=== PATIENT | female | born 1995 | race Caucasian/White ===

== ENCOUNTER → 2016-11-20 | Outpatient (CLI) | payer SELFPAY ==
[~2016-11-20] MED LIST: BUPR150T15 PO; BUPR300T3 PO; CITA20TA5 PO; HYDR25TA PO; LISI-338 PO; METR500T PO; Pantoprazole Sodium PO; VENL37.5 PO
--- NOTE | 2016-11-20 16:06 | RAD ---
Complete abdominal ultrasound History: Right upper quadrant pain for 1.5 weeks. Elevated lipase. Pancreatitis. Comparison: None. Procedure: Transabdominal ultrasound images are obtained. Findings: Pancreas is not well visualized or evaluated. Liver is normal in echogenicity. No focal hepatic masses are identified. Right hepatic lobe measures 12.1 cm in length. Gallbladder has an unremarkable appearance. Common bile duct measures normally at 3 mm in diameter. Spleen is unremarkable. Splenic length is 8.6 cm. Right kidney is normal in size and configuration without hydronephrosis. Left kidney is normal in size and configuration without hydronephrosis. Visualized portions of the aorta and IVC have normal caliber. Impression: 1. Pancreas is not well visualized or evaluated. 2. Unremarkable abdominal ultrasound.
== END | disposition home or self-care (01) ==
LOC: US 12:53
PROVIDERS: ATTEND Family Medicine
DX: K85.90 Acute pancreatitis without necrosis or infection, unspecified (principal)
CPT/HCPCS: 76700

== ENCOUNTER → 2017-01-07 | Outpatient (CLI) | payer SELFPAY ==
[2016-11-22 12:17] VITALS: BP 134/72
[~2017-01-07] VITALS: Ht 160 cm; Wt 74.8 kg
[~2017-01-07] MED LIST changes: +SINCALIDE 1.5 MCG in IV NORMAL SALINE 50ML 30 ML IV ONE
--- NOTE | 2017-01-07 15:38 | RAD ---
Radionuclide hepatobiliary scan with gallbladder ejection fraction, 01/07/2017: History: Right upper quadrant pain Following IV injection of 5.5 mCi of technetium 99m Choletec there was prompt uptake of the radionuclide from the blood stream by the liver. Activity is present in the gallbladder and bile ducts at 10 minutes and in the small bowel at 50 minutes. Additional imaging of the gallbladder was performed following IV injection of 1.5 mcg of cholecystokinin. The gallbladder ejection fraction was calculated at 20%. 30-50% is considered to be the borderline low range. IMPRESSION: 1. No evidence of cystic duct or common bile duct obstruction. 2. Low gallbladder ejection fraction of 20%.
== END | disposition home or self-care (01) ==
LOC: NM 12:58
PROVIDERS: ATTEND Family Medicine
DX: R10.11 Right upper quadrant pain (principal)
CPT/HCPCS: 78226; 96374; 96375; A9537; J2805

== ENCOUNTER → 2017-04-06 | Outpatient (CLI) | payer OTHER ==
[2016-11-22 12:17] VITALS: BP 134/72
[~2017-04-06] MED LIST changes: -SINCALIDE 1.5 MCG in IV NORMAL SALINE 50ML 30 ML IV ONE
--- NOTE | 2017-04-06 09:33 | RAD ---
Indication nontoxic multinodular goiter. Grayscale images were obtained. The examination was targeted to the thyroid. No prior imaging of the thyroid is available. The right lobe of the thyroid measures 4.5 x 1.4 x 1.6 cm and appears normal. No mass is seen. The isthmus appears normal. There is a 3 mm mass in the left lobe of the thyroid. IMPRESSION: 3 mm mass in the left lobe of the thyroid otherwise unremarkable study.
== END | disposition home or self-care (01) ==
LOC: US 07:50
PROVIDERS: ATTEND Family Medicine
DX: E04.2 Nontoxic multinodular goiter (principal); E07.89 Other specified disorders of thyroid
CPT/HCPCS: 76536

== ENCOUNTER 2020-12-11 20:20 | Emergency (ER) | payer SELFPAY ==
[~2020-12-11] VITALS: Ht 160 cm; Wt 90.4 kg
[~2020-12-11 20:20] MED LIST changes: -CITA20TA5 PO; +CITA20TA6 PO; -LISI-338 PO; +LISI-517 PO
[2020-12-11] MEDS ORDERED: IV NORMAL SALINE 1,000ML 1,000 ML IV ONE (21:00)
[2020-12-11] MEDS ORDERED: ONDANSETRON PF 4 MG/2 ML VIAL. IVP ONE (21:00)
[2020-12-11] MEDS ORDERED: FAMOTIDINE 20 MG/2 ML VIAL IVP ONE (21:00)
[2020-12-11] MEDS ORDERED: IOHEXOL 300 MG/ML 75 ML VIAL. IV ONE (21:00)
[2020-12-11] MEDS ORDERED: CONTRAST GIVEN. MC PRN (21:30)
[2020-12-11 21:37] LABS: BASO # 0.1 x10^3/uL (0.0-0.2); BASO % 0 % (0-3); EOS % 0 % (0-3); HEMATOCRIT 41.6 % (36.0-47.0); HEMOGLOBIN 13.9 g/dL (12.0-15.5); LYMPH # 0.9 x10^3/uL (1.0-4.8); LYMPH % 6 % (24-48); MEAN CORPUSCULAR HEMOGLOBIN 31 pg (25-35); MEAN CORPUSCULAR HGB CONC 34 g/dL (31-37); MEAN CORPUSCULAR VOLUME 91 fL (79-100); MONO # 0.8 x10^3/uL (0.0-1.1); MONO % 5 % (0-9); NEUT # 14.4 x10^3uL (1.8-7.7); NEUT % 89 % (31-73); PLATELET COUNT 311 x10^3/uL (140-400); RED BLOOD COUNT 4.56 x10^6/uL (3.50-5.40); RED CELL DISTRIBUTION WIDTH 13.1 % (11.5-14.5); WHITE BLOOD COUNT 16.1 x10^3/uL (4.0-11.0)
[2020-12-11 21:43] LABS: CALCIUM 8.5 mg/dL (8.5-10.1); POTASSIUM 3.7 mmol/L (3.5-5.1)
[2020-12-11 21:50] LABS: BACTERIA,URINE 0 /HPF (0-FEW); BILIRUBIN,URINE NEG (NEG); CLARITY,URINE HAZY; COLOR,URINE YELLOW; GLUCOSE,URINE NEG (NEG); NITRITE,URINE NEG (NEG); RBC,URINE 20-40 /HPF (0-2); SQUAMOUS EPITHELIAL CELL,UR FEW /LPF; UROBILINOGEN,URINE 0.2 mg/dL (0.2 mg/dL); WBC,URINE 0 /HPF (0-4)
[2020-12-11 21:50] LABS: ALBUMIN/GLOBULIN RATIO 1.1 (1.0-1.7); MAGNESIUM 1.9 mg/dL (1.8-2.4); TOTAL BILIRUBIN 0.7 mg/dL (0.2-1.0); TOTAL PROTEIN 7.7 g/dL (6.4-8.2)
--- NOTE | 2020-12-11 22:03 | RAD ---
EXAMINATION: CT ABDOMEN+PELVIS W (CT ABDOMEN/PELVIS WITH IV CONTRAST) CLINICAL HISTORY: RLQ pain, N/V eval for acute appy TECHNIQUE: CT of the abdomen and pelvis was performed using standard technique, scanning from just ab ove the dome of the diaphragm to the symphysis pubis following administration of intravenous contrast . CT Dose Reduction Employed: One or more of the following individualized dose reduction techniques wer e utilized for this examination: 1. Automated exposure control 2. Adjustment of the mA and/or kV ac cording to patient size 3. Use of iterative reconstruction technique. COMPARISON: 11/21/2016 FINDINGS: Partially visualized heart and lung bases unremarkable. Cholecystectomy. Liver, pancreas, spleen, and adrenal glands unremarkable. 4 mm calculus in the distal right ureter at the ureterovesical junction with mild right hydroureteron ephrosis and mild right renal swelling and perinephric stranding. No additional urinary calculi visua lized. Minimally filled urinary bladder suboptimally evaluated. Uterus and multifollicular ovaries un remarkable. No bowel dilation or definite wall thickening. Partially visualized appendix unremarkable. No evidence of abdominal aortic or iliac artery aneurysm. No evidence of acute osseous abnormality. IMPRESSION: 4 mm calculus at the right ureterovesical junction with mild right hydroureteronephrosis. Electronically signed by: Yann Dudley DO (12/11/2020 10:01 PM) [facility]
[2020-12-11 22:07] LABS: % LYMPHS 5 % (24-48); % MONOS 1 % (0-10); % SEGS 94 % (35-66); PLT ESTIMATE ADEQUATE (ADEQUATE)
[2020-12-11] MEDS ORDERED: HYDR-2155 PO (22:27)
[2020-12-11] MEDS ORDERED: TAMS0.4C97 PO (22:27)
[2020-12-11] MEDS ORDERED: ONDA4TAB12 PO (22:27)
--- NOTE | 2020-12-11 22:27 | PHYS DOC ---
Past History Past Medical History: Anxiety, Depression Past Surgical History: Cholecystectomy Alcohol Use: None General Adult EDM: Chief Complaint: ABDOMINAL PAIN HPI: HPI: Patient is a [age] year old [sex] who presents with [] Review of Systems: Review of Systems: Constitutional: Denies fever or chills Eyes: Denies redness or eye pain HENT: Denies nasal congestion or sore throat Respiratory: Denies cough or shortness of breath Cardiovascular: Denies chest pain or palpitations GI: Denies abdominal pain, nausea, or vomiting : Denies dysuria or hematuria Musculoskeletal: Denies back pain or joint pain Integument: Denies rash or skin lesions Neurologic: Denies headache, focal weakness or sensory changes Complete systems were reviewed and found to be within normal limits, except as documented in this note. Current Medications: Current Meds: Current Medications Medications (Trade) Dose Ordered Sig/Benedict Start Time Stop Time Status Last Admin Dose Admin Famotidine (Pepcid Vial) 20 mg 1X ONCE 12/11/20 21:00 12/11/20 21:04 DC 12/11/20 21:30 20 MG Info (Do NOT chart on this entry -- for MONITORING) 1 each PRN DAILY PRN 12/11/20 21:30 12/13/20 21:29 Iohexol (Omnipaque 300 Mg/ml) 75 ml 1X ONCE 12/11/20 21:00 12/11/20 21:22 DC 12/11/20 21:34 75 ML Ondansetron HCl (Zofran) 4 mg 1X ONCE 12/11/20 21:00 12/11/20 21:04 DC 12/11/20 21:30 4 MG Sodium Chloride 1,000 ml @ 1,000 mls/hr 1X ONCE 12/11/20 21:00 12/11/20 21:59 DC 12/11/20 21:30 1,000 MLS/HR Tamsulosin HCl (Flomax) 0.4 mg 1X ONCE 12/11/20 22:30 12/11/20 22:31 Allergies: Allergies: Allergies Coded Allergies Type Severity Reaction Last Updated Verified No Known Drug Allergies 11/21/16 No Physical Exam: PE: Constitutional: Well developed, well nourished, no acute distress, non-toxic appearance HENT: Normocephalic, atraumatic Eyes: PERRL, EOMI, conjunctiva normal, no discharge Neck: Normal range of motion, no tenderness, supple Lungs & Thorax: No respiratory distress, equal chest rise and fall Abdomen: Soft, no tenderness Skin: Warm, dry, no erythema, no rash Back: No tenderness, no CVA tenderness Extremities: No tenderness, ROM intact, no edema Neurologic: Alert and oriented X 3, normal motor function, normal sensory function, no focal deficits noted Psychologic: Affect normal, judgment normal Current Patient Data: Labs: Laboratory Tests Test 12/11/20 21:10 12/11/20 21:20 12/11/20 21:25 Urine Collection Type Unknown Urine Color Yellow Urine Clarity Hazy Urine pH 7.0 Urine Specific Whitmore 1.020 Urine Protein Neg (NEG-TRACE) Urine Glucose (UA) Neg mg/dL (NEG) Urine Ketones (Stick) 40 mg/dL (NEG) Urine Blood Mod (NEG) Urine Nitrite Neg (NEG) Urine Bilirubin Neg (NEG) Urine Urobilinogen Dipstick 0.2 mg/dL (0.2 mg/dL) Urine Leukocyte Esterase Neg (NEG) Urine RBC 20-40 /HPF (0-2) Urine WBC 0 /HPF (0-4) Urine Squamous Epithelial Cells Few /LPF Urine Bacteria 0 /HPF (0-FEW) White Blood Count 16.1 x10^3/uL (4.0-11.0) H Red Blood Count 4.56 x10^6/uL (3.50-5.40) Hemoglobin 13.9 g/dL (12.0-15.5) Hematocrit 41.6 % (36.0-47.0) Mean Corpuscular Volume 91 fL (79-100) Mean Corpuscular Hemoglobin 31 pg (25-35) Mean Corpuscular Hemoglobin Concent 34 g/dL (31-37) Red Cell Distribution Width 13.1 % (11.5-14.5) Platelet Count 311 x10^3/uL (140-400) Neutrophils (%) (Auto) 89 % (31-73) H Lymphocytes (%) (Auto) 6 % (24-48) L Monocytes (%) (Auto) 5 % (0-9) Eosinophils (%) (Auto) 0 % (0-3) Basophils (%) (Auto) 0 % (0-3) Neutrophils # (Auto) 14.4 x10^3uL (1.8-7.7) H Lymphocytes # (Auto) 0.9 x10^3/uL (1.0-4.8) L Monocytes # (Auto) 0.8 x10^3/uL (0.0-1.1) Eosinophils # (Auto) 0.0 x10^3/uL (0.0-0.7) Basophils # (Auto) 0.1 x10^3/uL (0.0-0.2) Segmented Neutrophils % 94 % (35-66) H Lymphocytes % 5 % (24-48) L Monocytes % 1 % (0-10) Platelet Estimate Adequate (ADEQUATE) Sodium Level 139 mmol/L (136-145) Potassium Level 3.7 mmol/L (3.5-5.1) Chloride Level 104 mmol/L (98-107) Carbon Dioxide Level 26 mmol/L (21-32) Anion Gap 9 (6-14) Blood Urea Nitrogen 13 mg/dL (7-20) Creatinine 1.0 mg/dL (0.6-1.0) Estimated GFR (Cockcroft-Gault) 67.0 BUN/Creatinine Ratio 13 (6-20) Glucose Level 106 mg/dL (70-99) H Calcium Level 8.5 mg/dL (8.5-10.1) Magnesium Level 1.9 mg/dL (1.8-2.4) Total Bilirubin 0.7 mg/dL (0.2-1.0) Aspartate Amino Transferase (AST) 33 U/L (15-37) Alanine Aminotransferase (ALT) 36 U/L (14-59) Alkaline Phosphatase 94 U/L (46-116) Total Protein 7.7 g/dL (6.4-8.2) Albumin 4.0 g/dL (3.4-5.0) Albumin/Globulin Ratio 1.1 (1.0-1.7) Lipase 105 U/L (73-393) POC Urine HCG, Qualitative hcg negative (Negative) Vital Signs: Vital Signs Date Time Temp Pulse Resp B/P (MAP) Pulse Ox O2 Delivery O2 Flow Rate FiO2 12/11/20 20:30 98.6 95 18 157/92 (113) 97 EKG: EKG: [] Radiology/Procedures: Radiology/Procedures: PROCEDURE: CT ABD PELV W/ IV CONTRST ONLY EXAMINATION: CT ABDOMEN+PELVIS W (CT ABDOMEN/PELVIS WITH IV CONTRAST) CLINICAL HISTORY: RLQ pain, N/V eval for acute appy TECHNIQUE: CT of the abdomen and pelvis was performed using standard technique, scanning from just above the dome of the diaphragm to the symphysis pubis following administration of intravenous contrast. CT Dose Reduction Employed: One or more of the following individualized dose reduction techniques were utilized for this examination: 1. Automated exposure control 2. Adjustment of the mA and/or kV according to patient size 3. Use of iterative reconstruction technique. COMPARISON: 11/21/2016 FINDINGS: Partially visualized heart and lung bases unremarkable. Cholecystectomy. Liver, pancreas, spleen, and adrenal glands unremarkable. 4 mm calculus in the distal right ureter at the ureterovesical junction with mild right hydroureteronephrosis and mild right renal swelling and perinephric stranding. No additional urinary calculi visualized. Minimally filled urinary bladder suboptimally evaluated. Uterus and multifollicular ovaries unremarkable. No bowel dilation or definite wall thickening. Partially visualized appendix unremarkable. No evidence of abdominal aortic or iliac artery aneurysm. No evidence of acute osseous abnormality. IMPRESSION: 4 mm calculus at the right ureterovesical junction with mild right hydroureteronephrosis. Electronically signed by: Yann Dudley DO (12/11/2020 10:01 PM) [facility] Heart Score: C/O Chest Pain: N/A Course & Med Decision Making: Course & Med Decision Making Pertinent Labs and Imaging studies reviewed. (See chart for details) Patient stable for discharge with outpatient follow-up with PCP. Discussed findings and plan with patient, who acknowledges understanding and agreement. Karthikeyan Disclaimer: Karthikeyan Disclaimer: This electronic medical record was generated, in whole or in part, using a voice recognition dictation system. Departure Departure: Impression: Primary Impression: Kidney stone on right side Disposition: HOME / SELF CARE / HOMELESS Condition: STABLE Referrals: EDOUARD CROWE MD (PCP) Patient Instructions: Diet for Kidney Stones, Kidney Stones, [id number] Additional Instructions: Increase fluid hydration. May also use over the counter Ibuprofen or Naproxen for pain or discomfort. Scripts Ondansetron (ONDANSETRON ODT) 4 Mg Tab.rapdis 1 TAB PO PRN Q6-8HRS PRN for NAUSEA, #16 TAB Prov: ELIZABETH RUBY DO 12/11/20 Hydrocodone Bit/Acetaminophen (HYDROCODONE-APAP 5-325 ) 1 Each Tablet 0.5-1 TAB PO PRN Q6HRS PRN for PAIN, #10 TAB 0 Refills Prov: ELIZABETH RUBY DO 12/11/20 Tamsulosin Hcl (FLOMAX) 0.4 Mg Cap.er.24h 1 CAP PO DAILY for Kidney stone, #7 CAP Prov: ELIZABETH RUBY DO 12/11/20 ELIZABETH RUBY DO December 11, 2020 22:27
[2020-12-11] MEDS ORDERED: KETOROLAC 15 MG/ML VIAL. IVP ONE (22:30)
[2020-12-11] MEDS ORDERED: TAMSULOSIN 0.4 MG CAP.ER.24H. PO ONE (22:30)
[2020-12-11 22:34] VITALS: BP 117/77
== END 2020-12-11 22:40 | disposition home or self-care (01) ==
LOC: ER 20:20
DX: N13.2 Hydronephrosis with renal and ureteral calculous obstruction (principal); F41.9 Anxiety disorder, unspecified; F32.9 Major depressive disorder, single episode, unspecified; Z90.49 Acquired absence of other specified parts of digestive tract
CPT/HCPCS: 36415; 74177; 80053; 81001; 81025; 83690; 83735; 85007; 85025; 96361; 96374; 96375; 99285; J1885; J2405; J3010; J3490; J7030; Q9967

== ENCOUNTER 2021-06-12 21:19 | Emergency (ER) | payer OTHER ==
[~2021-06-12] VITALS: Ht 160 cm; Wt 93.1 kg
[2021-06-12 21:19] VITALS: BP 146/98
[~2021-06-12 21:19] MED LIST changes: +HYDR-2155 PO; -LISI-517 PO; +LISI5TAB15 PO; +ONDA4TAB12 PO; +TAMS0.4C97 PO
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
== END 2021-06-12 22:10 | disposition home or self-care (01) ==
LOC: ER 21:19
DX: R11.0 Nausea (principal); R51.9 Headache, unspecified; F41.9 Anxiety disorder, unspecified; F32.9 Major depressive disorder, single episode, unspecified; V89.2XXA Person injured in unspecified motor-vehicle accident, traffic, initial encounter; Y93.89 Activity, other specified; Y92.89 Other specified places as the place of occurrence of the external cause; Y99.8 Other external cause status
CPT/HCPCS: 99282